=== PATIENT | female | born 1980 | race Caucasian/White ===

== ENCOUNTER → 2017-01-28 | Outpatient (CLI) | payer OTHER ==
[2017-01-25 13:53] VITALS: BMI 36.1
[2017-01-28 13:25] VITALS: BP 137/92; PULSE 113; RESP 18; TEMP 98.2
--- NOTE | 2017-01-28 13:58 | P.CONS ---
History of Present Illness - Reason for Consult Consult date: 01/28/17 - Chief Complaint Mid back and neck pain - History of Present Illness This is a 36-year-old female with history of surgery on the cervical and lumbar spines. At this point the patient feels pain in the neck area and also in the mid back area above her lumbar spine surgery level. The MRI of the thoracic spine that she had recently showed disc bulging and the T7-T8 level abutting the right ventral spinal cord. The patient mid back pain is more intense than her neck pain. It radiates around her chest anteriorly whenever she lifts anything heavy. He denies any numbness or tingling in the chest area denies any weakness in the upper or lower extremities however she feels pain in her neck that radiates down the left arm to the left hand with numbness and tingling in both hands and she states in no specific radicular distribution. She denies any bowel or bladder dysfunction. Her midback pain does not get worse with deep inspiration. Past Medical History Past Medical History: Asthma, GERD/Reflux Additional Past Medical History / Comment(s): gastric ulcer,Interstitial cystitis History of Any Multi-Drug Resistant Organisms: MRSA Year Discovered:: 2012 MDRO Source:: sinus Past Surgical History: Back Surgery, Orthopedic Surgery Additional Past Surgical History / Comment(s): EGD x2,lower back X2,neck surg, juan antonio shoulder repair,sinus surg Past Anesthesia/Blood Transfusion Reactions: Motion Sickness Additional Past Anesthesia/Blood Transfusion Reaction / Comm: no hx blood transfusion Smoking Status: Former smoker Past Alcohol Use History: Rare Additional Past Alcohol Use History / Comment(s): quit smoking 2011,smoked approx 8 yrs <1ppd Past Drug Use History: None Reported - Past Family History Mother Family Medical History: Cancer Additional Family Medical History / Comment(s): skin CA Father Family Medical History: No Reported History Medications and Allergies Home Medications Medication Instructions Recorded Confirmed Type L.acidoph,Paracasei, B.lactis 1 tab PO DAILY 01/25/17 01/28/17 History [Probiotic] Lansoprazole [Prevacid] 30 mg PO BID 01/25/17 01/28/17 History Levothyroxine Sodium [Synthroid] 88 mcg PO DAILY 01/25/17 01/28/17 History Multivitamins, Thera [Multivitamin 1 tab PO DAILY 01/25/17 01/28/17 History (formulary)] Oxybutynin ER [Ditropan Xl] 30 mg PO DAILY 01/25/17 01/25/17 History Simvastatin [Zocor] 20 mg PO DAILY 01/25/17 01/28/17 History Turmeric Root Extract [Turmeric] 500 mg PO DAILY 01/25/17 01/28/17 History Allergies Allergy/AdvReac Type Severity Reaction Status Date / Time Sulfa (Sulfonamide AdvReac Nausea & Verified 01/28/17 13:14 Antibiotics) Vomiting Physical Exam Vitals: Vital Signs Temp Pulse Resp BP Pulse Ox 01/28/17 13:16 98.2 F 113 H 18 137/92 97 The patient is morbidly obese ,alert oriented 3 in no apparent distress. Neuro exam of the upper extremities showed normal muscle strength and normal biceps reflex bilaterally and absent triceps reflex bilaterally. She has tenderness in the midback area around the level of T7-T8. She also has tenderness in the cervical paravertebral area laterally. He has normal range of motion of the cervical spine. Assessment and Plan Plan: This is a 36-year-old female with cervical radiculopathy due to disc herniation and mid back pain due to disc bulging and the T7-T8 level by MRI. She also has a history of previous cervical and lumbar spine surgeries. Her neurological exam is not significant for any focal changes. At this point I will schedule the patient to have thoracic epidural steroid injection under fluoroscopic guidance the plan will be to address her neck pain in the near future. The patient is to continue using [id number] medications for her pain. She did try [place] for her pain previously however I do not recommend that at this point. I thank you for the referral
== END | disposition home or self-care (01) ==
LOC: PNWHC3 13:08
PROVIDERS: ATTEND Anesthesiology
DX: M50.10 Cervical disc disorder with radiculopathy, unspecified cervical region (principal); M51.24 Other intervertebral disc displacement, thoracic region; K21.9 Gastro-esophageal reflux disease without esophagitis; Z87.891 Personal history of nicotine dependence; Z79.899 Other long term (current) drug therapy; Z88.2 Allergy status to sulfonamides
CPT/HCPCS: 99211

== ENCOUNTER 2017-02-14 06:20 | Day surgery (SDC) | payer OTHER ==
[2017-02-11 13:43] VITALS: BMI 36.1
[2017-02-14 06:40] VITALS: TEMP 98.7
[2017-02-14] MEDS ORDERED: LIDOCAINE 1% 20 ML VIAL (10MG/ML) FOR IV START INTRADERMA ONE (06:51)
[2017-02-14] MEDS ORDERED: IV FLUID CONTINUATION 1,000 ML IV ONE (06:52)
--- NOTE | 2017-02-14 08:14 | P.PCN ---
Date of Procedure: 02/14/17 Preoperative Diagnosis: Postoperative Diagnosis: Procedure(s) Performed: PREOPERATIVE DIAGNOSIS: 1- Thoracic herniated Disc Diseases. POSTOPERATIVE DIAGNOSIS: 1-Thoracic herniated Disc Diseases. PROCEDURE 1. Thoracic epidural steroid injection under fluoroscopic guidance at the T7-8 level. 2. Thoracic epidurogram. ANESTHESIA: Local with 1% lidocaine 3 ml and IV sedation with Versed 3 mg , and fentanyle 100 Mcg. EBL: Minimal PROCEDURE INDICATION: The patient with mid back pain and radiculitis symptoms unresponsive to conservative treatment. Fluoroscopy was used to optimize visualization of the needle placement and to maximize safety. PROCEDURE DESCRIPTION / TECHNIQUE: The patient was seen and identified in the preoperative area. Risks, benefits , complications including but not limited to infections ,bleeding ,allergic reaction to the medications ,nerve damage and not complete pain releife , and alternatives were discussed with the patient. The patient agreed to proceed with the procedure and signed the consent. IV was started, and vital signs were stable. Patient was taken to the OR and time out was completed. The patient was placed in the prone position on procedure table and a pillow was placed under the abdomen to reduce lumbar lordosis. The lumbosacral area was prepped and draped in the usual sterile fashion.ere closely monitored during the procedure. Conscious sedation was used during the procedure to decrease patients anxiety. Vital signs was monitered during the entire procedure. Using anterior-posterior fluoroscopy, the T7-8 interlaminar space was identified and the skin over this site was marked and then infiltrated with 1% lidocaine subcutaneously. Subsequently, a 20-gauge Tuohy epidural needle was inserted and advanced toward the epidural space using the ``Loss of resistance technique and guided by AP and lateral fluoroscopy. The correct needle position in the epidural space was verified with the injection of 2 mL of the water soluble contrast dye Omnipaque 180 contrast and observing an excellent epidurogram with the epidural spread of the dye, after negative aspiration for blood and CSF and in the absence of paresthesias. Again after negative aspiration, a 6 ml mixture containing 20 mg of Dexamethasone and 2 ml of preservative free Normal Saline, and 2 ml of preservative free lidocaine 1% solution was injected and a washout of epidurogram was seen. Needle was withdrawn intact, skin was cleansed, and bandages were applied. COMPLICATIONS: None DISPOSITION / PLANS: The patient was placed in a supine position and transferred to the recovery area in a stable condition for observation. There was no evidence of lower extremity motor or sensory deficit after the procedure. Patient was discharged from the recovery room after meeting discharge criteria. Home discharge instructions were given to the patient by the staff. The patient was reexamined prior to discharge. The patient will schedule a follow up in the clinic in 2-4 weeks. Implants: Indications for Procedure: Operative Findings: Description of Procedure:
--- NOTE | 2017-02-14 08:20 | FL ---
EXAMINATION TYPE: FL guided pain mgmt statistic DATE OF EXAM: 02/14/2017 HISTORY: Flouroscopy time 6 seconds of fluoroscopy provided. IMPRESSION: 1. Fluoroscopy time.
[2017-02-14 08:23] VITALS: RESP 18
[2017-02-14 08:26] VITALS: PULSE 64
[2017-02-14 08:37] VITALS: BP 118/82
== END 2017-02-14 08:46 | disposition home or self-care (01) ==
LOC: ORPAIN 06:20
PROVIDERS: ATTEND Specialist
DX: M51.24 Other intervertebral disc displacement, thoracic region (principal); E03.9 Hypothyroidism, unspecified
CPT/HCPCS: 81025; 62321; 99152; J2250; J1100; Q9965; J3010

== ENCOUNTER 2017-03-12 06:35 | Day surgery (SDC) | payer OTHER ==
[2017-03-11 09:05] VITALS: BMI 35.7
[2017-03-12 07:23] VITALS: TEMP 97.6
[2017-03-12] MEDS ORDERED: LACTATED RINGERS 1,000 ML IV ONE (07:28)
[2017-03-12] MEDS ORDERED: LIDOCAINE 1% 20 ML VIAL (10MG/ML) FOR IV START INTRADERMA ONE (07:28)
--- NOTE | 2017-03-12 08:21 | P.PCN ---
Date of Procedure: 03/12/17 Procedure(s) Performed: PREOPERATIVE DIAGNOSIS: 1- Lumbar herniated Disc Diseases. POSTOPERATIVE DIAGNOSIS: 1-Lumber herniated Disc Diseases PROCEDURE 1. thoracic epidural steroid injection under fluoroscopic guidance at the T7-8 level. 2. thoracic epidurogram. ANESTHESIA: Local with 1% lidocaine 3 ml and IV sedation with Versed 3 mg , and fentanyle 100 Mcg EBL: Minimal PROCEDURE INDICATION: The patient with low back pain and radiculitis symptoms unresponsive to conservative treatment. Fluoroscopy was used to optimize visualization of the needle placement and to maximize safety. PROCEDURE DESCRIPTION / TECHNIQUE: The patient was seen and identified in the preoperative area. Risks, benefits , complications including but not limited to infections ,bleeding ,allergic reaction to the medications ,nerve damage and not complete pain releife , and alternatives were discussed with the patient. The patient agreed to proceed with the procedure and signed the consent. IV was started, and vital signs were stable. Patient was taken to the OR and time out was completed. The patient was placed in the prone position on procedure table and a pillow was placed under the abdomen to reduce lumbar lordosis. The lumbosacral area was prepped and draped in the usual sterile fashion.ere closely monitored during the procedure. Conscious sedation was used during the procedure to decrease patients anxiety. Vital signs was monitered during the entire procedure. Using anterior-posterior fluoroscopy, the T7-8 interlaminar space was identified and the skin over this site was marked and then infiltrated with 1% lidocaine subcutaneously. Subsequently, a 20-gauge Tuohy epidural needle was inserted and advanced toward the epidural space using the ``Loss of resistance technique and guided by AP and lateral fluoroscopy. The correct needle position in the epidural space was verified with the injection of 2 mL of the water soluble contrast dye Omnipaque 180 contrast and observing an excellent epidurogram with the epidural spread of the dye, after negative aspiration for blood and CSF and in the absence of paresthesias. Again after negative aspiration, a 6 ml mixture containing 20 mg of Dexamethasone and 2 ml of preservative free Normal Saline, and 2 ml of preservative free lidocaine 1% solution was injected and a washout of epidurogram was seen. Needle was withdrawn intact, skin was cleansed, and bandages were applied. COMPLICATIONS: None DISPOSITION / PLANS: The patient was placed in a supine position and transferred to the recovery area in a stable condition for observation. There was no evidence of lower extremity motor or sensory deficit after the procedure. Patient was discharged from the recovery room after meeting discharge criteria. Home discharge instructions were given to the patient by the staff. The patient was reexamined prior to discharge. The patient will schedule a follow up in the clinic in 2-4 weeks.
[2017-03-12] MEDS ORDERED: IV FLUID CONTINUATION 1,000 ML IV ONE (08:34)
--- NOTE | 2017-03-12 08:36 | FL ---
EXAMINATION TYPE: FL guided pain mgmt statistic DATE OF EXAM: 03/12/2017 HISTORY: Flouroscopy time 21 seconds of fluoroscopy provided. IMPRESSION: 1. Fluoroscopy time.
[2017-03-12 08:50] VITALS: BP 107/68; PULSE 64; RESP 18
[2017-03-12] MEDS ORDERED: LACTATED RINGERS 1,000 ML IV SCH (08:51)
== END 2017-03-12 09:03 | disposition home or self-care (01) ==
LOC: ORPAIN 06:35
PROVIDERS: ATTEND Specialist
DX: M51.16 Intervertebral disc disorders with radiculopathy, lumbar region (principal)
CPT/HCPCS: 81025; 62321; 99152; J2250; J1100; Q9965; J3010; 99153

== ENCOUNTER 2017-03-28 06:40 | Day surgery (SDC) | payer OTHER ==
[2017-03-25 15:37] VITALS: BMI 35.7
[~2017-03-28 06:40] MED LIST: LACTATED RINGERS 1,000 ML IV SCH
[2017-03-28 06:56] VITALS: TEMP 98.2
[2017-03-28] MEDS ORDERED: LIDOCAINE 1% 20 ML VIAL (10MG/ML) FOR IV START INTRADERMA ONE (07:02)
--- NOTE | 2017-03-28 08:09 | P.PCN ---
Date of Procedure: 03/28/17 Procedure(s) Performed: PREOPERATIVE DIAGNOSIS: 1-Thoracic herniated Disc Diseases. POSTOPERATIVE DIAGNOSIS: 1-Thoracic herniated Disc Diseases. PROCEDURE 1. Thoracic epidural steroid injection under fluoroscopic guidance at the L5- S1 level. 2. Thoracic epidurogram. ANESTHESIA: Local with 1% lidocaine 3 ml and IV sedation with Versed 3 mg , and fentanyle 100 Mcg EBL: Minimal PROCEDURE INDICATION: The patient with mid back pain and radiculitis symptoms unresponsive to conservative treatment. Fluoroscopy was used to optimize visualization of the needle placement and to maximize safety. PROCEDURE DESCRIPTION / TECHNIQUE: The patient was seen and identified in the preoperative area. Risks, benefits , complications including but not limited to infections ,bleeding ,allergic reaction to the medications ,nerve damage and not complete pain releife , and alternatives were discussed with the patient. The patient agreed to proceed with the procedure and signed the consent. IV was started, and vital signs were stable. Patient was taken to the OR and time out was completed. The patient was placed in the prone position on procedure table and a pillow was placed under the abdomen to reduce lumbar lordosis. The lumbosacral area was prepped and draped in the usual sterile fashion.ere closely monitored during the procedure. Conscious sedation was used during the procedure to decrease patients anxiety. Vital signs was monitered during the entire procedure. Using anterior-posterior fluoroscopy, the T7-8 interlaminar space was identified and the skin over this site was marked and then infiltrated with 1% lidocaine subcutaneously. Subsequently, a 20-gauge Tuohy epidural needle was inserted and advanced toward the epidural space using the ``Loss of resistance technique and guided by AP and lateral fluoroscopy. The correct needle position in the epidural space was verified with the injection of 2 mL of the water soluble contrast dye Omnipaque 180 contrast and observing an excellent epidurogram with the epidural spread of the dye, after negative aspiration for blood and CSF and in the absence of paresthesias. Again after negative aspiration, a 6 ml mixture containing 20 mg of Dexamethasone and 2 ml of preservative free Normal Saline, and 2 ml of preservative free lidocaine 1% solution was injected and a washout of epidurogram was seen. Needle was withdrawn intact, skin was cleansed, and bandages were applied. COMPLICATIONS: None DISPOSITION / PLANS: The patient was placed in a supine position and transferred to the recovery area in a stable condition for observation. There was no evidence of lower extremity motor or sensory deficit after the procedure. Patient was discharged from the recovery room after meeting discharge criteria. Home discharge instructions were given to the patient by the staff. The patient was reexamined prior to discharge. The patient will schedule a follow up in the clinic in 2-4 weeks.
[2017-03-28] MEDS ORDERED: IV FLUID CONTINUATION 700 ML IV ONE (08:13)
[2017-03-28 08:16] VITALS: RESP 18
--- NOTE | 2017-03-28 08:24 | FL ---
Fluoroscopy HISTORY: Pain 7 seconds fluoroscopy time supplied to the referring clinician. 1 intraoperative C-arm image documen ts the procedure. See dictated report from anesthesia.
[2017-03-28 08:31] VITALS: BP 126/91; PULSE 76
== END 2017-03-28 08:38 | disposition home or self-care (01) ==
LOC: ORPAIN 06:40
PROVIDERS: ATTEND Specialist
DX: M51.14 Intervertebral disc disorders with radiculopathy, thoracic region (principal); Z88.2 Allergy status to sulfonamides
CPT/HCPCS: 62321; 81025; J2250; J1100; Q9965; J3010; 99152

== ENCOUNTER → 2017-04-25 | Outpatient (CLI) | payer OTHER ==
[2017-04-25 14:01] VITALS: BP 120/84; PULSE 94; RESP 16; TEMP 98.1
--- NOTE | 2017-04-25 14:16 | P.PN ---
Progress Note - Text Progress Note Date: 04/25/17 This is a 36-year-old female with neck pain and mid back pain. The patient has disc herniation and the midthoracic spine area which did not respond to 3 injections of the thoracic epidural steroid under fluoroscopic guidance. The patient is scheduled to have cervical fusion next month in [facility]. For her mid back pain I will give the patient prescription for tramadol 50 mg 2 take 1 pill as needed for severe pain daily. We will reevaluate the patient after she recovers from her neck surgery. By physical exam she is alert oriented 3 in no apparent distress she has tenderness in the midthoracic area in the paravertebral area bilaterally. PQRS measures: 1-Patient's medications are documented in the chart. 2-Tobacco use is negative, counseling given 3-Patient has not had a pneumococcal vaccine. 4-Advanced care planning discussed, patient unable to give 5-Opioid contract signed with the patient. 6-Pain positive, follow-up visit or procedure scheduled 7-Patient's blood pressure measured and documented within normal limits. 8-Patient's weight was measured, and body mass index ABOVE the normal limits, and counseling was done. Patient instructed to follow up with PCP. 9-Patient WAS NOT identified as an unhealthy alcohol user.
== END ==
LOC: PNWHC3 13:35
PROVIDERS: ATTEND Anesthesiology
DX: M51.26 Other intervertebral disc displacement, lumbar region (principal); Z79.899 Other long term (current) drug therapy; Z79.891 Long term (current) use of opiate analgesic
CPT/HCPCS: 99211

== ENCOUNTER → 2018-12-02 | Outpatient (CLI) | payer OTHER | END | disposition home or self-care (01) | LOC: LABWHC1 15:29 | PROVIDERS: ATTEND Nurse Practitioner Acute Care | DX: I49.9 Cardiac arrhythmia, unspecified (principal) | CPT/HCPCS: 36415; 93005 ==

== ENCOUNTER 2019-01-09 02:21 | Emergency (ER) | payer OTHER ==
[2019-01-09] MEDS ORDERED: SODIUM CHLORIDE 0.9% 500 ML 500 ML IV STA (03:06)
[2019-01-09 03:42] LABS: Basophils % (A) 0 %; Eosinophils # (A) 0.2 k/uL (0-0.7); Eosinophils % (A) 3 %; HCT 39.8 % (34.0-46.0); HGB 13.1 gm/dL (11.4-16.0); Lymphocytes # (A) 2.8 k/uL (1.0-4.8); Lymphocytes % (A) 40 %; MCH 30.5 pg (25.0-35.0); MCHC 32.9 g/dL (31.0-37.0); MCV 92.6 fL (80.0-100.0); Mean Platelet Volume 6.5; Monocytes # (A) 0.4 k/uL (0-1.0); Monocytes % (A) 6 %; Neutrophils # (A) 3.5 k/uL (1.3-7.7); Neutrophils % (A) 49 %; Platelet Count 338 k/uL (150-450); RDW 12.6 % (11.5-15.5); WBC 7.1 k/uL (3.8-10.6)
[2019-01-09 03:46] LABS: ALT 15 U/L (9-52); AST 21 U/L (14-36); African American GFR (CKD) >90 (>60 ml/min/1.73 sqM); Albumin 4.4 g/dL (3.5-5.0); Alkaline Phosphatase 43 U/L (38-126); Anion Gap 10 mmol/L; Blood Urea Nitrogen 17 mg/dL (7-17); Calcium 9.3 mg/dL (8.4-10.2); Carbon Dioxide 25 mmol/L (22-30); Chloride 104 mmol/L (98-107); Glucose 88 mg/dL (74-99); Magnesium 2.1 mg/dL (1.6-2.3); Potassium 4.2 mmol/L (3.5-5.1); Sodium 139 mmol/L (137-145); Total Bilirubin 0.3 mg/dL (0.2-1.3); Total Protein 6.9 g/dL (6.3-8.2)
[2019-01-09 03:54] LABS: D-Dimer 0.42 mg/L FEU (<0.60); INR 0.9 (<1.2)
[2019-01-09 03:56] VITALS: RESP 18
--- NOTE | 2019-01-09 04:01 | XR ---
EXAM: XR Chest, 2 Views CLINICAL HISTORY: Chest Pain TECHNIQUE: Frontal and lateral views of the chest. COMPARISON: No relevant prior studies available. FINDINGS: Lungs: Unremarkable. No consolidation. Pleural space: Unremarkable. No pleural effusions. No pneumothorax. Heart: Unremarkable. No cardiomegaly. Mediastinum: Unremarkable. Bones/joints: Unremarkable. IMPRESSION: No acute cardiopulmonary process.
--- NOTE | 2019-01-09 04:10 | ED ---
Chest Pain HPI - General Chief Complaint: Chest Pain Stated Complaint: Chest Pain Time Seen by Provider: 01/09/19 02:57 Source: patient Mode of arrival: ambulatory - History of Present Illness Initial Comments: 38-year-old female patient with past medical history significant for GERD, asthma presents to the emergency department today for evaluation of chest pain and palpitations. Patient states that she has been having issues with chest pain and palpitations over the last month but it seemed to worsen today. Patient states the pain is located over the left side of her chest and in her left shoulder and arm. She describes the pain as a squeezing type pain. She denies any radiation of the pain through to her back. Patient states today she became nauseated with this and felt like her heart was racing and pounding. Patient states she was evaluated for a similar episode in May. States that she does have an appointment with her web solutions architect tomorrow the symptoms worsened tonight so she felt she needed more urgent evaluation. She denies any dizziness or weakness. Denies any shortness of breath with this. States that she does have a family history of coronary artery disease with her father having an myocardial infarction at age 42. She does have a history of smoking and quit 5 years ago. Patient denies any recent rash, fever, chills, abdominal pain, v omiting, diarrhea, constipation, back pain, numbness, tingling, hematuria, dysuria, urinary urgency, urinary frequency, headache, visual changes, or any other complaints. - Related Data Home Medications Medication Instructions Recorded Confirmed L.acidoph,Paracasei, B.lactis 1 tab PO DAILY 01/25/17 04/25/17 [Probiotic] Lansoprazole [Prevacid] 30 mg PO BID 01/25/17 04/25/17 Levothyroxine Sodium [Synthroid] 88 mcg PO DAILY 01/25/17 04/25/17 Multivitamins, Thera [Multivitamin 1 tab PO DAILY 01/25/17 04/25/17 (formulary)] Oxybutynin ER [Ditropan Xl] 30 mg PO DAILY 01/25/17 04/25/17 Simvastatin [Zocor] 20 mg PO DAILY 01/25/17 04/25/17 Turmeric Root Extract [Turmeric] 500 mg PO DAILY 01/25/17 04/25/17 Medroxyprogesterone Acetate 150 mg IM DIRECTED 02/11/17 04/25/17 [Depo-Provera] traMADol HCL [Ultram] 50 mg PO DAILY PRN 04/25/17 04/25/17 Allergies Allergy/AdvReac Type Severity Reaction Status Date / Time Sulfa (Sulfonamide AdvReac Nausea & Verified 04/25/17 13:44 Antibiotics) Vomiting Review of Systems ROS Statement: Those systems with pertinent positive or pertinent negative responses have been documented in the HPI. ROS Other: All systems not noted in ROS Statement are negative. EKG Findings - EKG Comments: EKG Findings:: EKG obtained at 0242 shows normal sinus rhythm with a ventricular rate of 90, IN interval 122, QRS duration 84, QT 346, QTC 423. No evidence of ST elevation or depression. Past Medical History Past Medical History: Asthma, GERD/Reflux, Thyroid Disorder Additional Past Medical History / Comment(s): gastric ulcer,Interstitial cystitis, endometriosis History of Any Multi-Drug Resistant Organisms: MRSA Date of last positivie culture/infection: 2012 MDRO Source:: sinus Past Surgical History: Back Surgery, Orthopedic Surgery Additional Past Surgical History / Comment(s): EGD x2,lower back X2,neck surg,juan antonio shoulder repair,sinus surgery. PAIN CLINIC PROCEDURE Past Anesthesia/Blood Transfusion Reactions: Motion Sickness Additional Past Anesthesia/Blood Transfusion Reaction / Comment(s): no hx blood transfusion Past Psychological History: Depression Smoking Status: Former smoker Past Alcohol Use History: Rare Past Drug Use History: None Reported - Past Family History Mother Family Medical History: Cancer Additional Family Medical History / Comment(s): skin CA Father Family Medical History: No Reported History Sister(s) Family Medical History: Cancer Additional Family Medical History / Comment(s): CERVICAL General Exam General appearance: alert, in no apparent distress, other (This is a well- developed, well-nourished adult female patient in no acute distress. Vital signs upon presentation are temperature 98.0F, pulse 16, respirations 16, blood pressure 140/89, pulse ox 100% on room air.) Eye exam: Present: normal appearance, PERRL, EOMI. Absent: scleral icterus, conjunctival injection, periorbital swelling ENT exam: Present: normal exam, normal oropharynx, mucous membranes moist Respiratory exam: Present: normal lung sounds bilaterally. Absent: respiratory distress, wheezes, rales, rhonchi, stridor Cardiovascular Exam: Present: regular rate, normal rhythm, normal heart sounds. Absent: systolic murmur, diastolic murmur, rubs, gallop, clicks GI/Abdominal exam: Present: soft, normal bowel sounds. Absent: distended, tenderness, guarding, rebound, rigid Neurological exam: Present: alert, oriented X3, CN II-XII intact Psychiatric exam: Present: normal affect, normal mood Skin exam: Present: warm, dry, intact, normal color. Absent: rash Course Vital Signs 01/09/19 01/09/19 02:26 03:54 Temperature 98.0 F 98.6 F Pulse Rate 16 L 88 Respiratory 16 18 Rate Blood Pressure 140/89 122/88 O2 Sat by Pulse 100 98 Oximetry Chest Pain MDM - [facility] RADIOLOG[facility]: Two-view x-ray of the chest is obtained. Report reviewed in its entirety. Impression by Dr. Garcia shows no acute cardio pulmonary process. MDM: 38-year-old female patient presented to the emergency department today for evaluation of chest pain and palpitations. Physical examination is unremarkable. Lungs are clear to auscultation with good air movement. Pain is not reproducible palpation. Labs reviewed and were unremarkable. Troponin negative. D-dimer negative. Chest x-ray shows no acute cardio pulmonary process. EKG shows normal sinus rhythm with no ectopy or ST elevation or depression. I did discuss findings and results with the patient. She does have an appointment with cardiology tomorrow would like to be discharged home. She is instructed to keep this appointment. She is instructed to discuss possible heart monitoring. Return parameters were discussed in detail. She verbalizes understanding and agrees with this plan. Disposition Clinical Impression: Chest pain, Palpitations Disposition: HOME SELF-CARE Condition: Good Instructions (If sedation given, give patient instructions): Chest Pain (ED), Heart Palpitations (ED) Additional Instructions: Follow-up with the web solutions architect for recheck tomorrow as you have planned. Return to the emergency department immediately for any new, worsening, or concerning symptoms. Is patient prescribed a controlled substance at d/c from ED?: No Referrals: Cody Vail MD [Primary Care Provider] - 1-2 days Time of Disposition: 04:50
[2019-01-09 04:37] LABS: Appearance,Urine Cloudy (Clear); Bacteria,Urine Occasional /hpf; Bilirubin,Urine Negative (Negative); Blood,Urine Trace (Negative); Color,Urine Yellow; Glucose,Urine (UA) Negative (Negative); Hyaline Casts,Urine 7 /lpf (0-2); Ketones,Urine Negative (Negative); Leukocyte Esterase,Urine Negative (Negative); Mucus,Urine Few /hpf; Nitrite,Urine Negative (Negative); PH, Urine 5.5 (5.0-8.0); Protein,Urine Trace (Negative); RBC,Urine 2 /hpf (0-5); Specific Gravity,Urine 1.027 (1.001-1.035); Squamous Epithelial Cell,Urine 3 /hpf (0-4); Urobilinogen,Urine <2.0 mg/dL (<2.0); WBC,Urine 6 /hpf (0-5)
[2019-01-09 04:40] LABS: Amphetamine Screen,Urine Not Detected (NotDetected); Barbiturate Screen,Urine Not Detected (NotDetected); Benzodiazepines Screen,Urine Not Detected (NotDetected); Cocaine Screen,Urine Not Detected (NotDetected); Methadone Screen, Urine Not Detected (NotDetected); Opiate Screen,Urine Not Detected (NotDetected); Oxycodone Screen, Urine Not Detected (NotDetected); Phencyclidine Screen,Urine Not Detected (NotDetected); Tricyclic Antidepressant,Urine Not Detected (NotDetected); Urn Cannabinoid Scrn Not Detected (NotDetected)
[2019-01-09 05:08] VITALS: BP 125/78; PULSE 84; TEMP 98.4
== END 2019-01-09 05:08 | disposition home or self-care (01) ==
LOC: EC 02:21
DX: R07.9 Chest pain, unspecified (principal); R00.2 Palpitations; R11.0 Nausea; K21.9 Gastro-esophageal reflux disease without esophagitis; E07.9 Disorder of thyroid, unspecified; F32.9 Major depressive disorder, single episode, unspecified; I25.2 Old myocardial infarction; Z87.891 Personal history of nicotine dependence; Z86.14 Personal history of Methicillin resistant Staphylococcus aureus infection; Z79.890 Hormone replacement therapy; Z79.899 Other long term (current) drug therapy; Z88.2 Allergy status to sulfonamides; Z82.49 Family history of ischemic heart disease and other diseases of the circulatory system
CPT/HCPCS: 36415; 71046; 80053; 80306; 81001; 83735; 84443; 84484; 85025; 85379; 85610; 85730; 87086; 96360; 99285

== ENCOUNTER → 2019-01-15 | Outpatient (CLI) | payer OTHER ==
[2019-01-15 19:01] LABS: Chol/HDL Ratio 3.31; LDL Cholesterol,Calculated 109.4 mg/dL (0.0-131.0); VLDL Calculation 17.6 mg/dL (5.00-40.00)
== END | disposition home or self-care (01) ==
LOC: LABWHC1 13:23
PROVIDERS: ATTEND Internal Medicine Clinical Cardiac Electrophysiology
DX: E78.5 Hyperlipidemia, unspecified (principal)
CPT/HCPCS: 36415; 80061

== ENCOUNTER → 2019-02-23 | Day surgery (SDC) | payer OTHER ==
[2019-02-19 11:07] VITALS: BMI 35.2
[~2019-02-23] MED LIST changes: -LACTATED RINGERS 1,000 ML IV SCH; +SODIUM CHLORIDE 0.9% 1,000 ML IV SCH
[2019-02-23 08:41] VITALS: BP 131/72; PULSE 84; RESP 18; TEMP 98.5
--- NOTE | 2019-02-23 18:40 | P.PCN ---
Preoperative Diagnosis: Diagnosis Recurrent presyncope and loss of consciousness Twelve-lead ECG shows sinus because of normal IA narrow QRS normal ST segments Tilt table test per protocol Baseline blood pressure 109/69 mmHg pulse rate in the 70s Patient was tilted upright at an angle of 70. Heart rate and blood pressure remained stable without any changes No symptoms noted She was laid flat revealed the procedure. At the time of lying flat she felt really lightheaded and pounding in the chest No arrhythmias noted No hypertension noted Impression Twelve-lead ECG Normal heart rate and blood pressure response to upright tilting
== END ==
LOC: CATHEP 08:07
PROVIDERS: ATTEND Internal Medicine Clinical Cardiac Electrophysiology
DX: R55 Syncope and collapse (principal); Z87.891 Personal history of nicotine dependence; E03.9 Hypothyroidism, unspecified; Z79.890 Hormone replacement therapy; Z88.2 Allergy status to sulfonamides; Z82.49 Family history of ischemic heart disease and other diseases of the circulatory system; Z79.899 Other long term (current) drug therapy
CPT/HCPCS: 81025; 93660

== ENCOUNTER → 2019-07-17 | Outpatient (CLI) | payer OTHER | END | disposition home or self-care (01) | LOC: LABWHC1 12:03 | PROVIDERS: ATTEND Nurse Practitioner Adult Health | DX: R00.0 Tachycardia, unspecified (principal) | CPT/HCPCS: 36415; 84439; 84443; 84481 ==